=== PATIENT | male | born 1995 | race Caucasian/White ===

== ENCOUNTER 2017-12-09 12:48 | Emergency (ER) | payer MEDICAID, OTHER ==
[2017-12-09 13:09] VITALS: BP 140/84; PULSE 79; O2SAT 98
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
== END 2017-12-09 14:15 | disposition home or self-care (01) ==
LOC: ED 12:48
DX: L03.011 Cellulitis of right finger (principal)
CPT/HCPCS: 99282

== ENCOUNTER 2018-08-03 11:44 | Emergency (ER) | payer OTHER ==
[2018-08-03] MEDS ORDERED: Adacel Vial IM ONE ×2 (11:54→12:06)
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
[2018-08-03] MEDS ORDERED: MOTRIN 400 MG PO ONE (11:59)
[2018-08-03] MEDS ORDERED: MOTRIN 400 MG ONE (12:04)
--- NOTE | 2018-08-03 12:31 | XRAY ---
Indication: Pain following injury. Comparison: None 3 views of the right hand obtained. No bony, articular, or soft tissue abnormalities.
[2018-08-03 13:37] VITALS: BP 118/60; PULSE 60
== END 2018-08-03 13:30 | disposition home or self-care (01) ==
LOC: ED 11:44
DX: S60.511A Abrasion of right hand, initial encounter (principal); X58.XXXA Exposure to other specified factors, initial encounter; Y93.9 Activity, unspecified; Y92.89 Other specified places as the place of occurrence of the external cause; Z23 Encounter for immunization; A35 Other tetanus
CPT/HCPCS: 73130; 90471; 90715; 99283; A9270-GY